=== PATIENT | female | born 1940 | race Caucasian/White ===

== ENCOUNTER → 2017-05-30 11:33 | Outpatient (POV) | payer MEDICARE, OTHER, SELFPAY ==
[2017-05-30 12:56] LABS: Basophils % 0.7 % (0.1-2.0); Eosinophils # 0.1 K/mm3 (0.0-0.4); Eosinophils % 2.2 % (0.1-12.0); Hematocrit 40.9 % (37.0-47.0); Hemoglobin 12.7 g/dL (12.2-16.2); Lymphocytes # 1.1 K/mm3 (0.7-4.5); Lymphocytes % 25.1 K/mm3 (10-50); Mean Corpuscular Volume 99.8 fl (81-99); Mean Platelet Volume 11.3 fl (7.4-10.4); Monocytes # 0.4 K/mm3 (0.1-1.0); Monocytes % 8.1 % (1.7-9.3); Neutrophils # 2.8 K/mm3 (1.8-7.8); Neutrophils % 63.8 % (37.0-80.0); Platelet Count 126 K/mm3 (142-424); Red Blood Count 4.09 M/mm3 (4.20-5.40); Red Cell Distribution Width 14.2 % (11.5-17.5); White Blood Count 4.4 K/mm3 (4.8-10.8)
[2017-05-30 15:05] LABS: Alanine Aminotransferase 17 U/L (12-78); Alkaline Phosphatase 135 U/L (46-116); Amylase 65 U/L (25-125); Anion Gap 10.9 mEq/L (5-15); Aspartate Amino Transferase 15 U/L (15-37); Bilirubin,Total 0.6 mg/dL (0.2-1.0); Blood Urea Nitrogen 18 mg/dL (7-18); Calcium 9.2 mg/dL (8.5-10.1); Carbon Dioxide 34 mmol/L (21.0-32.0); Chloride 103 mmol/L (98-107); Creatinine,Serum 1.02 mg/dL (0.55-1.02); Estimated Glomerular Filt Rate 52 ml/min (>60); GFR (African American) 63 ML/MIN (>60); Glucose 107 mg/dL (74-106); Lipase 1189 u/L (73-393); Potassium 3.9 mmoL/L (3.5-5.1); Sodium 144 mmol/L (136-145)
== END ==
PROVIDERS: Family Provider Family Medicine; PCP Family Medicine; Visit Provider Nurse Practitioner Acute Care
DX: K85.90 Acute pancreatitis without necrosis or infection, unspecified (principal)
CPT/HCPCS: 36415; 80053; 82150; 83690; 85025

== ENCOUNTER 2017-07-04 12:45 | Day surgery (SDC) | payer MEDICARE, OTHER, SELFPAY ==
[2017-07-04] VITALS (8 sets, daily range): BP systolic 123–155; BP diastolic 57–99; PULSE 69–91; RESP 16–20; TEMP 36.6–36.7; O2SAT 92–98; BMI 41.7
--- NOTE | 2017-07-04 15:29 | FL_ITS ---
FL ERCP Fluoroscopy time: 1 minute and 38 seconds CLINICAL INDICATION: ITS.REASON: ERCP..RUQ PAIN ORDERING PHYSICIAN: Quinten Benavides MD PATIENT AGE: 77 years COMPARISON: None FINDINGS: Selectivity WASTE AND BATTING WASTE CHOPPER are submitted showing the catheter with the common bile duct is slightly prominent. There was oval decreased density in the distal aspect of the common bile duct which may represent small common duct stones. No images of the pancreatic duct are submitted. IMPRESSION: Suspect distal choledocholithiasis. Please correlate with fluoroscopic findings mildly dilated common bile duct
--- NOTE | 2017-07-04 16:15 | HMH.PROC ---
[facility] Procedure Note Procedure Note:: ERCP procedure Report: Endoscopic retrograde cholangiopancreatography with biliary sphincterotomy Endoscopist: Quinten Benavides II, MD Referring Physician: Juan J Gomez MD Date of Procedure: July 04, 2017 Equipment: Olympus 180 side viewing endoscope/duodenal scope Sedation: MAC sedation Indication: Mrs. Garsia is a 77-year-old female with multiple comorbidities and pancreatitis. The patient had an ultrasound of the right upper quadrant that showed a normal CBD diameter. She is unable to have MRCP. She reports some upper abdominal discomfort that is both left and right upper quadrant. She has some gnawing discomfort. Her endoscopic ultrasound showed mildly dilated pancreatic duct. Her ERCP on May 11, 2017 showed mild dilation of the bile duct and pancreatic duct but complete cannulation was difficult. She is here for repeat ERCP. She also had an elevated alkaline phosphatase of 135. Her transaminases and total bilirubin were normal. Procedure: Prior to the procedure, a history and physical exam was performed, and patient's medications and allergies were reviewed. The risks, benefits and alternatives of the sedation and procedure were discussed with the patient. All questions were answered and informed consent was obtained. The patient was brought to the fluoroscopic radiology room. Patient identification and proposed procedure were verified by the physician and the nurse. The patient was placed in a swimmer's position between left lateral decubitus and prone position and the scope was passed under direct vision. Throughout the procedure, the patient's blood pressure, pulse, and oxygen saturations were monitored continuously. The ERCP was accomplished without difficulty. The patient tolerated the procedure well. Findings: The scope was passed directly into the upper esophagus and advanced to the third portion duodenum. There was a small hiatal hernia with presbyesophagus. There was also evidence of bile reflux with linear reactive gastritis of the stomach. There was a moderate sized duodenal diverticulum in the second portion adjacent to the ampulla. The common bile duct and pancreatic duct were cannulated. The pancreatogram did not show any significant stricturing and was 4 mm. The common bile duct was slightly dilated at 10 mm diameter. There was delayed drainage of contrast. A biliary sphincterotomy were performed. There was extravasation of sludge/minor choledocholithiasis as well as bile. There was excellent decompression biliary system. The cystic duct stump was identified. There was normal filling of the intrahepatic biliary system. Impression: 1. 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 Normal pancreatogram 3. Mildly dilated CBD (10 mm) with normal for prior cholecystectomy 4. 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 Linear reactive gastritis 6. Nonerosive GERD with presbyesophagus and small hiatal hernia Plan: I will discuss the findings with the patient and family. We will discuss whether any additional therapy is warranted.
--- NOTE | 2017-07-04 16:20 | P.PCN_ITS ---
[facility] Procedure Note Procedure Note:: ERCP procedure Report: Endoscopic retrograde cholangiopancreatography with biliary sphincterotomy Endoscopist: Quinten Benavides II, MD Referring Physician: Juan J Gomez MD Date of Procedure: July 04, 2017 Equipment: Olympus 180 side viewing endoscope/duodenal scope Sedation: MAC sedation Indication: Mrs. Garsia is a 77-year-old female with multiple comorbidities and pancreatitis. The patient had an ultrasound of the right upper quadrant that showed a normal CBD diameter. She is unable to have MRCP. She reports some upper abdominal discomfort that is both left and right upper quadrant. She has some gnawing discomfort. Her endoscopic ultrasound showed mildly dilated pancreatic duct. Her ERCP on May 11, 2017 showed mild dilation of the bile duct and pancreatic duct but complete cannulation was difficult. She is here for repeat ERCP. She also had an elevated alkaline phosphatase of 135. Her transaminases and total bilirubin were normal. Procedure: Prior to the procedure, a history and physical exam was performed, and patient' s medications and allergies were reviewed. The risks, benefits and alternatives of the sedation and procedure were discussed with the patient. All questions were answered and informed consent was obtained. The patient was brought to the fluoroscopic radiology room. Patient identification and proposed procedure were verified by the physician and the nurse. The patient was placed in a swimmer's position between left lateral decubitus and prone position and the scope was passed under direct vision. Throughout the procedure , the patient's blood pressure, pulse, and oxygen saturations were monitored continuously. The ERCP was accomplished without difficulty. The patient tolerated the procedure well. Findings: The scope was passed directly into the upper esophagus and advanced to the third portion duodenum. There was a small hiatal hernia with presbyesophagus. There was also evidence of bile reflux with linear reactive gastritis of the stomach. There was a moderate sized duodenal diverticulum in the second portion adjacent to the ampulla. The common bile duct and pancreatic duct were cannulated. The pancreatogram did not show any significant stricturing and was 4 mm. The common bile duct was slightly dilated at 10 mm diameter. There was delayed drainage of contrast. A biliary sphincterotomy were performed. There was extravasation of sludge/minor choledocholithiasis as well as bile. There was excellent decompression biliary system. The cystic duct stump was identified. There was normal filling of the intrahepatic biliary system. Impression: 1. 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 Normal pancreatogram 3. Mildly dilated CBD (10 mm) with normal for prior cholecystectomy 4. 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 Linear reactive gastritis 6. Nonerosive GERD with presbyesophagus and small hiatal hernia Plan: I will discuss the findings with the patient and family. We will discuss whether any additional therapy is warranted.
--- NOTE | 2017-07-04 16:48 | HMH.ANESCL ---
[facility] Anesthesia Checklist - Patient Identification Patient Identification: Arm Band - Structural Data Admitted From: Home Planned Operative Procedure/s: ercp Consent for Planned Operative Procedure(s) Verified: Yes Verified Documents: Surgical Consent, History and Physical - NPO Status Verified Time NPO: 00:00 - Additional verifications Anesthesia Reactions: No - Airway Assessment C-Spine Mobility Assessed: Yes TMJ Mobility Assessed: Yes Dentition: Edentulous - Neurological Assessment Level of Consciousness: Awake, Alert - Anesthesia Plan Anesthesia Risk discussed: Yes Anesthesia Plan: Verified ASA Class: III Anesthesia Type: MAC [facility] Anesthesia HX I have reviewed the patient's past medical history: Yes Medical History: Reports:: Atherosclerotic Heart Disease, Atrial Fibrillation, Congestive Heart Failure, Internal Pacemaker, Lung Disease (home o2-2l nightly), Valvular Heart Disease Denies:: Diabetes Mellitus Type 1, Diabetes Mellitus Type 2, Seizures Laterality Cases: Bilateral: Total Knee Replacement Other Surgeries: Yes: Pacemaker, Other (ector, hiatial hernia repair, bilateral breast bx, )
== END 2017-07-04 17:30 | disposition home or self-care (01) ==
PROVIDERS: Family Provider Family Medicine; PCP Family Medicine; Visit Provider Internal Medicine Gastroenterology
DX: K80.50 Calculus of bile duct without cholangitis or cholecystitis without obstruction (principal); K57.10 Diverticulosis of small intestine without perforation or abscess without bleeding; K29.60 Other gastritis without bleeding; K44.9 Diaphragmatic hernia without obstruction or gangrene; K21.9 Gastro-esophageal reflux disease without esophagitis; K22.8 Other specified diseases of esophagus
CPT/HCPCS: 43262; 74330; Q9967

== ENCOUNTER → 2017-08-29 13:11 | Outpatient (POV) | payer MEDICARE, OTHER, SELFPAY ==
[2017-08-29 14:27] LABS: Basophils % 0.6 % (0.1-2.0); Eosinophils # 0.2 K/mm3 (0.0-0.4); Eosinophils % 3.3 % (0.1-12.0); Hematocrit 40.1 % (37.0-47.0); Hemoglobin 12.5 g/dL (12.2-16.2); Lymphocytes # 1.2 K/mm3 (0.7-4.5); Lymphocytes % 27.4 K/mm3 (10-50); Mean Corpuscular HGB Conc 31.3 g/dL (31.8-35.4); Mean Corpuscular Volume 99.2 fl (81-99); Mean Platelet Volume 11.3 fl (7.4-10.4); Monocytes # 0.4 K/mm3 (0.1-1.0); Monocytes % 8.7 % (1.7-9.3); Neutrophils # 2.7 K/mm3 (1.8-7.8); Platelet Count 126 K/mm3 (142-424); Red Blood Count 4.04 M/mm3 (4.20-5.40); Red Cell Distribution Width 14.5 % (11.5-17.5); White Blood Count 4.4 K/mm3 (4.8-10.8)
[2017-08-29 15:18] LABS: Alanine Aminotransferase 21 U/L (12-78); Albumin Level 3.3 gm/dL (3.4-5.0); Albumin/Globulin Ratio 1.1 (1.1-1.8); Alkaline Phosphatase 158 U/L (46-116); Amylase 27 U/L (25-125); Anion Gap 11.9 mEq/L (5-15); Aspartate Amino Transferase 22 U/L (15-37); Bilirubin,Total 0.5 mg/dL (0.2-1.0); Blood Urea Nitrogen 18 mg/dL (7-18); Calcium 9.2 mg/dL (8.5-10.1); Carbon Dioxide 29 mmol/L (21.0-32.0); Chloride 104 mmol/L (98-107); Creatinine,Serum 0.98 mg/dL (0.55-1.02); Estimated Glomerular Filt Rate 55 ml/min (>60); GFR (African American) 66 ML/MIN (>60); Globulin 2.9 gm/dl (1.3-3.2); Glucose 105 mg/dL (74-106); Lipase 62 u/L (73-393); Potassium 3.9 mmoL/L (3.5-5.1); Sodium 141 mmol/L (136-145); Total Protein,Serum 6.2 gm/dL (6.4-8.2)
== END ==
PROVIDERS: Visit Provider Nurse Practitioner Acute Care
DX: R19.7 Diarrhea, unspecified (principal)
CPT/HCPCS: 36415; 80053; 82150; 83690; 85025

== ENCOUNTER → 2017-09-20 16:06 | Outpatient (CLI) | payer MEDICARE, OTHER, SELFPAY ==
--- NOTE | 2017-09-20 16:11 | XR_ITS ---
XR knee RT 3V HISTORY: ITS.REASON: RT KNEE PAIN ORDERING PHYSICIAN: Ky Villegas MD PATIENT AGE: 77 years COMPARISON: 03/13/2013 FINDINGS: Status post total knee arthroplasty. There is good alignment of the prosthesis and no evidence of orthopedic complication. No fracture or dislocation. IMPRESSION: No change status post total knee arthroplasty with no acute finding
== END ==
PROVIDERS: PCP Family Medicine; Visit Provider Family Medicine
DX: M25.561 Pain in right knee (principal)
CPT/HCPCS: 73562

== ENCOUNTER → 2017-11-10 14:32 | Outpatient (CLI) | payer MEDICARE, OTHER, SELFPAY ==
--- NOTE | 2017-11-10 14:37 | XR_ITS ---
XR lumbar spine min 4V Ordering Physician: Ky Villegas MD Patient Age: 77 years: Female HISTORY: ITS.REASON: LOW BACK PAIN W/SCIATICA TECHNIQUE: Five-view lumbar spine series. COMPARISON :CT abdomen pelvis images of the spine from January 2017 utilized. FINDINGS Diffuse demineralization. Mild Levoscoliosis upper lumbar region Bilateral facet arthropathy and hypertrophy throughout the L-spine most evident at L5/S1 L4/5 L3/4. . Disc space narrowing and sclerotic reactive endplate changes are most evident about the narrowed L2/3 disc space. Mild narrowing L1/2 disc space and less and less evident narrowing at T12/L1... Slight narrowing at the disc spaces throughout the thoracolumbar junction Noted There is some minor 2-3 mm degenerative anterolisthesis of L4 on L5, as well as L5 on S1 which was actually better seen on the previous CT abdomen but can be appreciated vaguely on today's plain films as well There is apposition of the hypertrophic spinous processes seen at L3 and L4. Apposition of the hypertrophic spinous processes can also be a feature contributing to low back pain. SI joints pedicles intact IMPRESSION: . Degenerative changes lumbar spine Levoscoliosis. Disc space narrowing most pronounced at L2/ 3. Follow-up L1/2 at the lumbar spine. Prominent degenerative facet changes throughout L-spine particularly evident at the lower 3 levels With this there is scant 2-3 mm degenerative anterolisthesis of L3-L4 and L4-5
== END ==
PROVIDERS: PCP Family Medicine; Visit Provider Family Medicine
DX: M54.42 Lumbago with sciatica, left side (principal)
CPT/HCPCS: 72110

== ENCOUNTER 2017-12-05 08:29 | Observation (INO) ==
--- NOTE | 2017-12-05 12:08 | History & Physical Report ---
*Admission Date: 12/05/17 *Chief complaint: abnormal LFT *History of present illness: Ms. Garsia is a 77-year-old female patient with a history of hypertension, coronary artery disease, diverticulosis, arthritis severe pulmonary hypertension , atrial fibrillation and biliary duct obstruction. She presented to the office of [facility] last week and was noted to have painless jaundice with a total bilirubin of 12.5. Other labs obtained included a CMP with a blood sugar of 84, BUN 17, creatinine 0.8, sodium 134, potassium 4.1, chloride 98, CO2 24, calcium 9.4, total protein 6.4, albumin 3.2, alkaline phosphatase 656, SGPT 75, SGOT 76, amylase 17, and lipase of 10. Hepatitis panel was negative for A and B. At that time she was having no abdominal pain but did have nausea without vomiting. She was able to eat and drink. To note : she had an ERCP with Sphincterotomy in June 2017. Right upper quadrant ultrasound was ordered for today. Radiology notified Dr. Rosas of abnormality with a dilated common bile duct and a CT was performed as well. Dr. Rosas did discuss with gastroenterology and Dr. Benavides plans ERCP this p.m. She was admitted for observation. At the time of exam she has some abdominal discomfort mostly in the upper quadrants. She is nauseated periodically but has not vomited. She notes diarrhea for several weeks on a daily basis. She denies any fever. [facility] History Medical History: Reports:: Atherosclerotic Heart Disease, Atrial Fibrillation, Congestive Heart Failure, Coronary Artery Disease, Hypertension, Internal Pacemaker, Lung Disease (home o2-2l nightly), Valvular Heart Disease Denies:: Diabetes Mellitus Type 1, Diabetes Mellitus Type 2, Seizures Other Medical History: Reports: Arthritis Laterality Cases: Bilateral: Breast Biopsy, Total Knee Replacement Other Surgeries: Yes: Cardiac Catheterization, Hernia Repair, Pacemaker, Other ( ector, hiatial hernia repair, bilateral breast bx, ) - *Social History Smoking Status: Never smoker Alcohol Intake: never *Family Hx:: Cancer, Diabetes Review of Systems - Constitutional Reports fatigue, Reports lack of energy, Reports weight loss - *Cardiovascular Reports shortness of breath with activity - *Respiratory Reports shortness of breath with activity - *Gastrointestinal Reports abdominal pain, Reports loose stools, Reports nausea - *Musculoskeletal Comments: uses a walker - Integumentary/Breasts Reports yellowing of the skin, Reports itching - *Neurologic Reports dizziness Meds Home Medications Medication Instructions Recorded Confirmed Type Allopurinol [Zyloprim] 100 mg PO BID 06/28/17 12/05/17 History Apixaban [Eliquis] 5 mg PO BID 06/28/17 12/05/17 History Carvedilol [Carvedilol 12.5mg Tab] 12.5 mg PO BID 06/28/17 12/05/17 History Furosemide [Lasix 20mg tab] 20 mg PO DAILY 06/28/17 12/05/17 History Gabapentin [Gabapentin 100mg Cap] 300 mg PO BID 06/28/17 12/05/17 History Potassium Chloride 20 meq PO BID 11/12/17 12/05/17 History Colestipol HCl 1 gm PO TID 11/13/17 12/05/17 History Cyclobenzaprine HCl 5 mg PO NEEDED PRN 11/13/17 12/05/17 History [Cyclobenzaprine 5mg Tab] Hyoscyamine Sulfate 0.125 mg PO NEEDED PRN 11/13/17 12/05/17 History Mirabegron [Myrbetriq] 50 mg PO DAILY 11/13/17 12/05/17 History Temazepam [Restoril 15mg capsule] 15 mg PO HS PRN 11/13/17 12/05/17 History Amoxicillin/Potassium Clav 1 tab PO Q12H 12/05/17 12/05/17 History [Augmentin 875-125 Tablet] Allergies Allergy/AdvReac Type Severity Reaction Status Date / Time cefazolin [CEFAZOLIN] Allergy Intermediate I-RASH Verified 11/12/17 23:00 Iodinated Contrast Media - Allergy Intermediate I-RASH Verified 11/12/17 23:00 Oral and [IODINATED CONTRAST MEDIA - IV DYE] dextrose [DEXTROSE] Allergy Unknown Verified 11/12/17 23:00 Exam Vital signs and Labs for Last 24 Hours: Temp Pulse Resp BP Pulse Ox 98.3 F 87 20 119/73 97 12/05/17 11:53 12/05/17 11:53 12/05/17 11:53 12/05/17 11:53 12/05/17 11:53 I & O for Last 24 hours: Intake & Output 12/03/17 12/04/17 12/05/1712/06/18 11:59 11:59 11:59 11:59 Weight 142 lb Radiology Reports for the Last 24 Hours: 12/05/17 RUQ US MPRESSION: Pronounced, marked intrahepatic biliary ductal dilatation . Prominent dilated common duct measuring up to 1.5 cm. I believe the common duct is dilated down to the head of the pancreas. Pancreas is partially obscured by gas and not well seen but no gross mass evident here on today's limited current ultrasound survey.. Recommend CT abdomen with contrast ./pancreas protocol to further evaluate - Constitutional no acute distress - *Routine HEENT Exam Head: Present: normocephalic, atraumatic Eye: Present: PERRL, conjunctival icterus ENT: Present: mucous membranes moist, oropharynx clear - *Routine Neck Exam Present: supple, full ROM - *Routine Respiratory Exam Present: CTA bilaterally (A&P) - *Routine Cardiovascular Exam Present: RRR - *Routine Abdominal Exam Present: soft, normoactive bowel sounds Comments: No HSM or palpable mass - *Routine Extremities Exam Present: full ROM Comments: no edema or calf tenderness - *Routine Skin Exam Present: jaundice - *Routine Neurological Exam Present: alert, oriented X3 Assessment and Plan (1) Intrahepatic bile duct dilation Current visit: Yes Status: Acute Category: Medical Code(s): K83.8 - Other specified diseases of biliary tract (2) Itching Current visit: Yes Status: Acute Category: Medical Code(s): L29.9 - Pruritus, unspecified - Assessment and plan all Dx Assessment and Plan for all problems:: Plan has been discussed with Dr. Benavides; NPO for ERCP today; admitted to OBS
[2017-12-05 12:59] LABS: Basophils % 0.3 % (0.1-2.0); Eosinophils # 0.1 K/mm3 (0.0-0.4); Eosinophils % 1.1 % (0.1-12.0); Hematocrit 38.6 % (37.0-47.0); Hemoglobin 12.1 g/dL (12.2-16.2); Lymphocytes % 55.5 K/mm3 (10-50); Mean Corpuscular HGB Conc 31.4 g/dL (31.8-35.4); Mean Corpuscular Hemoglobin 31.3 pg (27.0-31.2); Mean Corpuscular Volume 99.8 fl (81-99); Monocytes # 0.2 K/mm3 (0.1-1.0); Monocytes % 3.5 % (1.7-9.3); Neutrophils # 2.2 K/mm3 (1.8-7.8); Neutrophils % 39.6 % (37.0-80.0); Platelet Count 233 K/mm3 (142-424); Red Blood Count 3.87 M/mm3 (4.20-5.40); Red Cell Distribution Width 17.3 % (11.5-17.5); White Blood Count 5.5 K/mm3 (4.8-10.8)
[2017-12-05 13:18] LABS: Albumin Level 2.3 gm/dL (3.4-5.0); Albumin/Globulin Ratio 0.6 (1.1-1.8); Anion Gap 14.4 mEq/L (5-15); Calcium 9.8 mg/dL (8.5-10.1); Globulin 3.7 gm/dl (1.3-3.2); Potassium 3.4 mmoL/L (3.5-5.1)
[2017-12-05 13:19] LABS: Bilirubin,Total 21.3 mg/dL (0.2-1.0)
[2017-12-05 13:32] LABS: Amylase 8 U/L (25-125); Lipase 31 u/L (73-393)
[2017-12-05 13:43] LABS: Lymphocytes % 12 % (10-50); Monocytes % 4 % (2-9); Neutrophils % 84 % (42-76); Total Cells Counted 100
[2017-12-05 13:44] LABS: Target Cells 3+
--- NOTE | 2017-12-05 14:39 | Pharmacy Consult Notes ---
[facility] Pharmacy VTE Monitoring - Patient Demographics Admission date: 12/05/17 Report Date: 12/05/17 Time: 14:39 Allergies/Adverse Reactions: Patient Allergies cefazolin [CEFAZOLIN] Allergy (Intermediate, Verified 11/12/17 23:00) I-RASH Iodinated Contrast Media - Oral and [IODINATED CONTRAST MEDIA - IV DYE] Allergy (Intermediate, Verified 11/12/17 23:00) I-RASH dextrose [DEXTROSE] Allergy (Unknown, Verified 11/12/17 23:00) Height: 1.47 m Weight: 64.41 kg Patient Problems: Current Active Problems Intrahepatic bile duct dilation (Acute) - VTE Risk Labs: VTE Related Lab Results Hgb 12.1 g/dL (12.2-16.2) L 12/05/17 12:45 Hct 38.6 % (37.0-47.0) 12/05/17 12:45 Plt Count 233 K/mm3 (142-424) 12/05/17 12:45 BUN 22 mg/dL (7-18) H 12/05/17 12:45 Creatinine 1.41 mg/dL (0.55-1.02) H 12/05/17 12:45 Estimated Creat Clear 33 mL/min (0-300) 12/05/17 12:45 Was VTE Risk Assessment Performed: Yes VTE Score: 3 VTE Risk Level: Low Risk Clinical Trial Participant: No - Prophylaxis VTE Prophylaxis Ordered?: Yes Types of VTE Prophylaxis: TEDS Knee High
--- NOTE | 2017-12-05 15:03 | Progress Note ---
[facility] Anesthesia Checklist - Patient Identification Patient Identification: Arm Band, Verbal (Name & ) - Structural Data Admitted From: Inpatient Planned Operative Procedure/s: ercp Consent for Planned Operative Procedure(s) Verified: Yes Verified Documents: Surgical Consent, History and Physical - NPO Status Verified Time NPO: 00:00 - Additional verifications Patient : No Anesthesia Reactions: No Hx Blood Transfusions: No Blood Transfusion Reaction: No Cephalosporin Allergy: No Previous Colonoscopy: Yes - Cardiovascular Assessment Pulse Strength: Baseline Pulse Rhythm: Irregular Peripheral Edema: No - Airway Assessment C-Spine Mobility Assessed: Yes TMJ Mobility Assessed: Yes Dentition: Edentulous - Neurological Assessment Level of Consciousness: Awake, Alert, Appropriate Hx Seizures: No Numbness or tingling in extremities: No - Anesthesia Plan Anesthesia Risk discussed: Yes Anesthesia Plan: Verified ASA Class: III Anesthesia Type: MAC [facility] Anesthesia HX Medical History: Reports:: Atherosclerotic Heart Disease, Atrial Fibrillation, Congestive Heart Failure, Coronary Artery Disease, Home Oxygen, Hypertension, Internal Pacemaker, Lung Disease (home o2-2l nightly), Renal Insufficiency, Valvular Heart Disease Denies:: Cancer, Diabetes Mellitus Type 1, Diabetes Mellitus Type 2, MRSA, Seizures Laterality Cases: Bilateral: Breast Biopsy, Cataract Other Surgeries: Yes: Pacemaker, Other (ector, hiatial hernia repair, bilateral breast bx, ) Amputation: No Fractures: No *Family Hx:: Cancer, Coronary Artery Disease, Diabetes, Heart Attack, Hyperlipidemia, Hypertension, Stroke
--- NOTE | 2017-12-05 16:36 | Procedure Note ---
[facility] Procedure Note Procedure Note:: ERCP procedure Report: Endoscopic retrograde cholangiography Endoscopist: Quinten Benavides II, MD Referring Physician: Juan J Gomez MD Date of Procedure: December 05, 2017 Equipment: Olympus 180 side viewing endoscope duodenoscope Sedation: MAC sedation Indication: Mrs. Garsia is a 77-year-old female who has had pancreatitis and has several comorbidities. She does have a contrast allergy. She also has mildly elevated creatinine. The patient has a history of normal CBD diameter but was unable to have MRCP. The patient had an endoscopic ultrasound that showed a mildly dilated pancreatic duct. Her prior CAT scan with oral contrast showed a mildly dilated pancreatic duct but normal common bile duct. There was no masses identified. She did have a difficult ERCP in April 2017 but her ERCP in June 2017 showed a CBD of 10 mm and a smooth tapering biliary system with probable sludge and sphincter of Oddi dysfunction. She did have biliary sphincterotomy. The pancreatic duct was approximately 4 mm but there was no stricturing or ductular ectasias. The patient has had some ongoing digestive difficulties and more recently had some right upper quadrant pain. She has developed jaundice with a total bilirubin of 21. She reports acholic stools, darkening urine and pruritus. She has had some weight loss. A repeat CAT scan today without IV or oral contrast shows moderate dilation of the biliary system. There is no definable pancreatic ductal dilatation and no masses or stones but was a noncontrast study dated Procedure: Prior to the procedure, a history and physical exam was performed, and patient' s medications and allergies were reviewed. The risks, benefits and alternatives of the sedation and procedure were discussed with the patient. All questions were answered and informed consent was obtained. The patient was brought to the fluoroscopic radiology room. Patient identification and proposed procedure were verified by the physician and the nurse. The patient was placed in a swimmer's position between left lateral decubitus and prone position and the scope was passed under direct vision. Throughout the procedure , the patient's blood pressure, pulse, and oxygen saturations were monitored continuously. The ERCP was accomplished without difficulty. The patient tolerated the procedure well. Findings: The duodenal scope was passed directly into the upper esophagus and advanced to the fourth portion of the duodenum. The esophagus, stomach were normal. The ampulla appeared to be angulated in a difficult way and the ampulla was identified. Multiple attempts at cannulation of the biliary tract failed with complete cannulation of the bile duct. Partial cannulation was performed but no contrast was seen in the proximal system. After 60 minutes of attempting cannulation the procedure was ended. Impression: 1. Suspected biliary obstruction Plan: I will speak with the patient and family. I am going to obtain a CA-19-9 level and transfer the patient to [place] for percutaneous transhepatic cholangiography with conversion to internal stenting through combined procedure.
[2017-12-05 20:42] VITALS: BP 119/63
--- NOTE | 2017-12-06 15:05 | Discharge Summary ---
General - General Admission date:: 12/05/17 Discharge date: 12/05/17 HPI HPI: Ms. Garsia is a 77-year-old female patient with a history of hypertension, coronary artery disease, diverticulosis, arthritis severe pulmonary hypertension, atrial fibrillation and biliary duct obstruction. She presented to the office of [facility] last week and was noted to have painless jaundice with a total bilirubin of 12.5. Other labs obtained included a CMP with a blood sugar of 84, BUN 17, creatinine 0.8, sodium 134, potassium 4.1, chloride 98, CO2 24, calcium 9.4, total protein 6.4, albumin 3.2, alkaline phosphatase 656, SGPT 75, SGOT 76, amylase 17, and lipase of 10. Hepatitis panel was negative for A and B. At that time she was having no abdominal pain but did have nausea without vomiting. She was able to eat and drink. To note :she had an ERCP with Sphincterotomy in June 2017. Right upper quadrant ultrasound was ordered for today. Radiology notified Dr. Rosas of abnormality with a dilated common bile duct and a CT was performed as well. Dr. Rosas did discuss with gastroenterology and Dr. Benavides plans ERCP this p.m. She was admitted for observation. At the time of exam she has some abdominal discomfort mostly in the upper quadrants. She is nauseated periodically but has not vomited. She notes diarrhea for several weeks on a daily basis. She denies any fever. Hospital Course Hospital Course: Dr. Benavides performed an ERCP. He felt he would need to obtain a CA-19-9 level and transfer the patient to [place] for percutaneous transhepatic cholangiography with conversion to internal stenting through combined procedure. The patient was transferred. Objective Vital signs: Temp Pulse Resp BP Pulse Ox 97.7 F 88 18 119/63 96 12/05/17 20:00 12/05/17 20:00 12/05/17 20:00 12/05/17 20:00 12/05/17 20:00 Narrative: - Constitutional no acute distress - *Routine HEENT Exam Head: Present: normocephalic, atraumatic Eye: Present: PERRL, conjunctival icterus ENT: Present: mucous membranes moist, oropharynx clear - *Routine Neck Exam Present: supple, full ROM - *Routine Respiratory Exam Present: CTA bilaterally (A&P) - *Routine Cardiovascular Exam Present: RRR - *Routine Abdominal Exam Present: soft, normoactive bowel sounds Comments: No HSM or palpable mass - *Routine Extremities Exam Present: full ROM Comments: no edema or calf tenderness - *Routine Skin Exam Present: jaundice - *Routine Neurological Exam Present: alert, oriented X3 DS: Diagnosis - Discharge Diagnosis (1) Intrahepatic bile duct dilation Status: Acute (2) Itching Status: Acute Discharge Plan - Patient Discharge Instructions ACTIVITY: Bed rest DIET: NPO Additional Instructions: See Dr. Benavides note. Patient is to be transferred [facility]. Patient Instructions: Cholangiocarcinoma - Follow up Plan Follow up with: Quinten Benavides MD [Staff Physician] - Disposition: Xfer Short-Term Hosp Prescriptions/Medication Reconciliation: Discontinued Carvedilol [Carvedilol 12.5mg Tab] 12.5 mg PO BID Gabapentin [Gabapentin 100mg Cap] 300 mg PO BID Apixaban [Eliquis] 5 mg PO BID Allopurinol [Zyloprim] 100 mg PO BID Temazepam [Restoril 15mg capsule] 15 mg PO HS PRN PRN Reason: Sleep Hyoscyamine Sulfate 0.125 mg PO NEEDED PRN PRN Reason: stomach pain Cyclobenzaprine HCl [Cyclobenzaprine 5mg Tab] 5 mg PO NEEDED PRN PRN Reason: pain Colestipol HCl 1 gm PO TID Furosemide [Lasix 20mg tab] 20 mg PO DAILY Potassium Chloride 20 meq PO BID Mirabegron [Myrbetriq] 50 mg PO DAILY Amoxicillin/Potassium Clav [Augmentin 875-125 Tablet] 1 tab PO Q12H
== END 2017-12-06 00:50 | disposition short-term general hospital (02) ==
LOC: RAD 08:29 → 2ND 08:29
PROVIDERS: ADMIT Family Medicine; ATTEND Family Medicine
CPT/HCPCS: 74176; 74330; 76705; 80053; 82150; 83690; 85007; 85025; G0378; J1610; Q9967

== ENCOUNTER → 2018-01-12 18:09 | Outpatient (REF) | payer MEDICARE, OTHER, SELFPAY ==
[2018-01-12 18:11] LABS: Adenovirus F 40/41, stool Not Detected (NotDetected); Astrovirus Not Detected (NotDetected); Campylobacter Not Detected (NotDetected); Clostridium Difficile A/B, PCR Not Detected (NotDetected); Cryptosporidium Not Detected (NotDetected); Cyclospora Cayetanesis Not Detected (NotDetected); Entamoeba histolytica Not Detected (NotDetected); Enteroaggregative E coli Not Detected (NotDetected); Enteropathogenic E coli Not Detected (NotDetected); Enterotoxigenic E coli Not Detected (NotDetected); Giardia lamblia Not Detected (NotDetected); Norovirus Not Detected (NotDetected); Plesimonas Shigalloides, PCR Not Detected (NotDetected); Rotavirus A Not Detected (NotDetected); Salmonella, PCR Not Detected (NotDetected); Sapovirus Not Detected (NotDetected); Shiga-like toxin E coli Not Detected (NotDetected); Shigella Enterovasive E coli Not Detected (NotDetected); Vibrio Cholerae Not Detected (NotDetected); Vibrio, PCR Not Detected (NotDetected); Yersinia Entercolitica, PCR Not Detected (NotDetected)
== END ==
LOC: LAB 18:09
PROVIDERS: Visit Provider Family Medicine
DX: R19.7 Diarrhea, unspecified (principal)
CPT/HCPCS: 87507